=== PATIENT | female | born 1960 | race Caucasian/White ===

== ENCOUNTER 2023-08-19 21:53 | Emergency (ER) | payer OTHER ==
[~2023-08-19] VITALS: Ht 160 cm; Wt 86.2 kg
[2023-08-19 22:35] VITALS: BP_SYST 173; PULSE 76; RESP 16; TEMP 97.1; O2SAT 97
[2023-08-19] MEDS: HYDROcodone/ACETAMIN 5-325 MG TAB (NORCO/ VICODIN) PO ONE (23:08)
[2023-08-19] MEDS ORDERED: HYDR-3917 PO (23:23)
== END 2023-08-19 23:39 | disposition home or self-care (01) ==
LOC: SED 21:53
DX: S83.91XA Sprain of unspecified site of right knee, initial encounter (principal); X58.XXXA Exposure to other specified factors, initial encounter; Y93.89 Activity, other specified; Y92.89 Other specified places as the place of occurrence of the external cause; Y99.8 Other external cause status
CPT/HCPCS: 73560; 99283